=== PATIENT | male | born 1985 | race Caucasian/White ===

== ENCOUNTER 2019-06-22 19:08 | Outpatient (CLI) | payer MEDICAID | END 2019-06-22 19:09 | disposition EMS.NT | LOC: EMS 19:08 | PROVIDERS: ATTEND Surgery | DX: M25.562 Pain in left knee (principal); M25.561 Pain in right knee; V49.40XA Driver injured in collision with unspecified motor vehicles in traffic accident, initial encounter; Y92.413 State road as the place of occurrence of the external cause ==

== ENCOUNTER 2019-06-22 20:32 | Emergency (ER) | payer MEDICAID ==
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
[2019-06-22] MEDS ORDERED: IBUPROFEN 600 MG TABLET PO STA (21:12)
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
[2019-06-22 22:04] VITALS: BP 123/72
[2019-06-22] MEDS ORDERED: oxyCODONE/ACET 5/325 Prepack 4 PO STA (22:07)
== END 2019-06-22 22:23 | disposition home or self-care (01) ==
LOC: ED 20:32
DX: S80.02XA Contusion of left knee, initial encounter (principal); S80.01XA Contusion of right knee, initial encounter; V43.52XA Car driver injured in collision with other type car in traffic accident, initial encounter; W22.11XA Striking against or struck by driver side automobile airbag, initial encounter; Y92.410 Unspecified street and highway as the place of occurrence of the external cause; F17.200 Nicotine dependence, unspecified, uncomplicated
CPT/HCPCS: 73564; 99283; 99284; A9270